=== PATIENT | male | born 1960 | race Caucasian/White ===

== ENCOUNTER 2018-02-26 14:46 | Emergency (ER) | payer SELFPAY ==
[2018-02-26 15:09] VITALS: BP 107/81
--- NOTE | 2018-02-26 15:49 | Diagnostic Imaging Report ---
YOLIS LOMBARDO [facility] [address] [facility] [address] 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 Physician: YOLIS LOMBARDO CT brain noncontrast Date of study: February 26, 2018 CLINICAL HISTORY: PT STATES HEADACHE, VERTIGO X 1 MONTH (Hx) / ITS.REASON headache, dizziness, intermittent vision changes, Note time : 02/26/2018 4:32:27 PM User : Luana Fischer PT STATES HEADACHE, VERTIGO X 1 MONTH (DICOM Hx) TECHNIQUE: 5 mm contiguous axial images of the brain, noncontrast. FINDINGS: There is no evidence of intracranial mass effect, hemorrhage, or acute hydrocephalus. The lateral ventricles are symmetrical and the 4th ventricle is midline without shift. No acute brain parenchymal changes or extra-axial fluid collections are identified. The posterior fossa contents are within normal limits. The calvarium is intact. The visualized sinuses show multi sinus mucosal thickening. And mastoid air cells are clear. Intracranial atherosclerotic vascular calcification is prominent for the patient's age. IMPRESSION: No acute intracranial process. Electronically signed on Feb 26, 2018 3:47:14 PM EMBLEM FUSER TENDER by: Kennedy HILTON
--- NOTE | 2018-02-26 15:50 | Diagnostic Imaging Report ---
YOLIS LOMBARDO [facility] [address] [facility] [address] [place] [address]. [id number] Report Submission Date: Feb 26, 2018 3:48:42 PM [employer]LETS MANAGER Patient Study Name: ALEX VOGEL Date: Feb 26, 2018 3:20:28 PM [employer] AND [employer] OUTLETS MANAGER Modality Type: CT\SR Gender: M Description: CT C-SPINE W/O CONTRAS : 64 Institution: [facility] Physician: YOLIS LOMBARDO CT cervical spine. Date of study: February 26, 2018 CLINICAL HISTORY: PT STATES HEADACHE, VERTIGO, NECK PAIN X 1 MONTH (Hx) / ITS.REASON cyst post neck headaches dizziness Note time : 02/26/2018 4:32:44 PM User : Luana Fischer PT STATES HEADACHE, VERTIGO, NECK PAIN X 1 MONTH (DICOM Hx) TECHNIQUE: 3 mm contiguous axial images of the cervical spine with sagittal and coronal reconstructions. FINDINGS: The cervical spine alignment show straightening The cervical vertebral bodies are of normal height and the intervertebral disc spaces are of average width. Marginal spurs arise from multiple levels. The cervical vertebral bodies and posterior elements are intact. The spinal canal diameter is normal. There is no evidence of acute fracture or subluxation. The facets are in proper relationship bilaterally. The craniocervical and cervicothoracic junctions are normal. There is posterior facet degenerative arthritis and uncovertebral joint spurring encroaching upon multiple neural foramen. Carotid artery calcification is present in the neck IMPRESSION: No evidence of acute cervical spine fracture or subluxation. Cervical spondylosis Straightening of the normal cervical lordotic curve suggest muscle spasm. Carotid artery calcification Electronically signed on Feb 26, 2018 3:48:42 PM [employer] OUTLETS MANAGER by: Kennedy HILTON
--- NOTE | 2018-02-26 16:01 | ED Physician Documentation ---
General Adult - HISTORIAN Historian: patient - HPI Stated Complaint: Lump on neck Chief Complaint: General Adult Additional Information: Intro self as [employer]. pt presents to the ED via POV c/o intermittent dizziness headaches and a cyst on upper neck x 1 month. pt denies current headache or dizziness or vision change. reports current neck pain. 4/10 aching. worse with movement. pt denies current chest pain, dyspnea, syncope/near syncope, headache, dizziness, visual disturbances, n/v/d, fever/chills, rash, sick contacts, dysuria, trauma. melena or hematochezia, bleeding or easy bruising, change in bowel or bladder function, no recent weight loss/gain, anxiety or depression. ROS Negative unless otherwise specified. - ROS CONST: no problems - PAST HX Past History: other (Large cell tumor Left foot-benign) Surgeries/Procedures: other Allergies/Adverse Reactions: Allergies Allergy/AdvReac Type Severity Reaction Status Date / Time sulfamethoxazole Allergy Verified 12/24/14 16:56 [From Bactrim] trimethoprim [From Bactrim] Allergy Verified 12/24/14 16:56 Home Medications: Ambulatory Orders Medication Instructions Recorded Lisinopril 10 mg PO D 02/09/13 PARoxetine HCL [Paxil] 10 mg PO D 02/09/13 Doxycycline Monohydrate 100 mg PO Q12H #20 tablet 12/24/14 Hydrocodone/Acetaminophen [[place] 1 - 2 tab PO Q6H PRN #15 12/24/14 5-325 Tablet] - SOCIAL HX Smoking History: non-smoker Alcohol Use: none Drug Use: none - FAMILY HX Family History: No - VITAL SIGNS Vital Signs: Vital Signs Temp Pulse Resp BP Pulse Ox 98.2 F 88 18 107/81 95 02/26/18 15:03 02/26/18 15:03 02/26/18 15:03 02/26/18 15:03 02/26/18 15:03 - REVIEWED ASSESSMENTS Nursing Assessment Reviewed: Yes Vitals Reviewed: Yes ED Results Lab/Radiology - Orders Orders: ED Orders Category Date Time Status CT BRAIN W/O CONTRAST Stat Exams 02/26/[address] C-SPINE W/O CONTRAST Stat Exams 02/26/18 Completed General Adult Physical Exam - PHYSICAL EXAM GENERAL APPEARANCE: no distress EENT: eye inspection normal, ENT inspection normal, pharynx normal, no signs of dehydration, LUDA, no nystagmus, TM's nml NECK: normal inspection, thyroid normal, other (4 cm circular posterior cyst to c1-c2, mobile, no warmth, erythema, or tenderness. tenderness to paravertebral muscles. ). No: lymphadenopathy RESPIRATORY: no resp distress, breath sounds normal. No: wheezes, rales, rhonchi CVS: reg rate & rhythm, heart sounds normal, equal pulses, no murmur, no gallop, PMI nml, no JVD, no friction rub, 24 ABDOMEN: soft, no organomegaly, normal bowel sounds, no abdominal bruit, no distension BACK: normal inspection, no CVA tenderness SKIN: normal color, warm/dry, NR, INT, PAL, DR EXTREMITIES: non-tender, normal range of motion, no evidence of injury, no edema, J, [employer] NEURO: oriented X3, motor nml, sensation nml, mood/affect nml Discharge Clincal Impression: Neck pain, Cyst Headache Qualifiers: Headache type: unspecified Headache chronicity pattern: unspecified pattern Intractability: not intractable Qualified Code(s): R51 - Headache Additional Instructions: Follow up with primary care for further imaging/referral to general surgeon. Ibuprofen 600 mg every 6 hours for fever/inflammation Tylenol 650 mg every 4-6 hours for pain/fever seek medical care immediately if difficult to wake, difficulty breathing, feeling faint or fainting, increased rash, chest pain, shortness of breath, or fever not controlled by tylenol/motrin or any concern. PLEASE UNDERSTAND THAT THIS IS AN EMERGENCY EVALUATION FOR YOUR COMPLAINT AND BY NATURE IS LIMITED AND NOT A SUBSTITUTE FOR ONGOING MEDICAL CARE. EVEN THOUGH TEST RESULTS AND TREATMENT PLAN WERE EXPLAINED THERE MAY BE A NEED FOR ADDITIONAL TESTING TO FULLY DETERMINE THE EXTENT OF YOUR ILLNESS/INJURY/OR CONCERN SO YOU SHOULD CONTACT AND OR ESTABLISH WITH A PRIMARY CARE PROVIDER (OR REFERRAL DOCTOR IF APPLICABLE) FOR AN APPOINTMENT SOON POSSIBLE Condition: Good Decision to Admit: NO Date of Decison to Admit: 02/26/18 Decision Time: 15:59
== END 2018-02-26 16:05 ==
LOC: ED 14:46
DX: M54.2 Cervicalgia (principal); L72.9 Follicular cyst of the skin and subcutaneous tissue, unspecified; R51 Headache
CPT/HCPCS: 70450; 72125; 99283; 99285